=== PATIENT | female | born 1970 | race Caucasian/White ===

== ENCOUNTER → 2021-06-18 14:07 | Outpatient (CLI) | payer OTHER, SELFPAY ==
--- NOTE | ~2021-06-18 | US_ITS ---
EXAMINATION: US thyroid EXAM DATE: 06/18/2021 14:34 INDICATION: Nontoxic goiter. TECHNIQUE: Multiple grayscale and Doppler images of the thyroid were obtained (by a technologist who performed the scan) and subsequently reviewed. Individual nodules and recommendations may be reporte d in accordance with TI-RADS system as designated by the 2017 ACR White Paper TI-RADS committee. The re is no prior study for comparison. FINDINGS: Right thyroid lobe measures 5.5 x 1.7 x 2.1 cm, the left measuring 5.3 x 1.7 x 2.2 cm, moderately enl arged. Diffusely heterogeneous thyroid parenchyma. Largest thyroid nodule is in the inferior pole of the right thyroid lobe measuring 2.4 x 2.0 x 1.8, s olid (2 points), hyperechoic (1 point), wider than tall, smooth well defined margin, without echogeni c foci, category TR3 for this nodule. This category nodule is recommended for biopsy if reaches 2.5 cm in size. Recommend one-year follow-up. The other nodules are subcentimeter in size. IMPRESSION: Multinodular goiter; recommend one-year follow-up. Reviewed, dictated and finalized at location B.
== END ==
PROVIDERS: PCP Family Medicine; Visit Provider Internal Medicine Endocrinology, Diabetes & Metabolism
DX: E04.2 Nontoxic multinodular goiter (principal)
CPT/HCPCS: 76536

== ENCOUNTER → 2022-01-06 15:16 | Outpatient (CLI) | payer OTHER, SELFPAY ==
--- NOTE | ~2022-01-06 | US_ITS ---
EXAMINATION: US thyroid DATE: 01/06/2022 15:38 INDICATION: Nontoxic single thyroid nodule. TECHNIQUE: Multiple ultrasound images of the thyroid were obtained. COMPARISON: Ultrasound 06/18/2021 FINDINGS: The right thyroid lobe measures 5.7 x 1.9 x 1.9 cm. The left thyroid lobe measures 4.9 x 2.0 x 1.5 c m. The thyroid is diffusely hypoechoic with heterogeneous echogenicity. Vascularity is normal. In th e right thyroid lobe, there is a 2.2 cm solid, hyperechoic, wider than tall nodule smooth margin with out echogenic foci (TI-RADS TR3). IMPRESSION: 1. Heterogeneous thyroid, likely chronic lymphocytic (Patricia) thyroiditis. 2. Right thyroid nodule, stable from 06/18/2021. Thyroid ultrasound is recommended in 1-2 years. Reviewed, dictated and finalized at location B. IMPRESSION: 1. Heterogeneous thyroid, likely chronic lymphocytic (Patricia) thyroiditis. 2. Right thyroid nodule, stable from 06/18/2021. Thyroid ultrasound is recommend ed in 1-2 years.
== END ==
PROVIDERS: PCP Family Medicine; Visit Provider Nurse Practitioner
DX: E04.1 Nontoxic single thyroid nodule (principal)
CPT/HCPCS: 76536

== ENCOUNTER → 2022-07-24 09:52 | Outpatient (CLI) | payer OTHER, SELFPAY ==
--- NOTE | ~2022-07-24 | XR_ITS ---
EXAMINATION: XR ankle LT 2V, XR foot LT 2V, XR foot RT 2V, XR ankle RT 2V DATE: 07/24/2022 10:57 INDICATION: Multiple joint pain TECHNIQUE: 1. Anteroposterior and lateral view of the left ankle were obtained. 2. Dorsoplantar and lateral views of the left foot were obtained. 3. Anteroposterior and lateral view of the right ankle were obtained. 4. Dorsoplantar and lateral views of the right foot were obtained. COMPARISON: None. FINDINGS: Normal alignment at the bilateral feet and ankles. No fractures. Minimal to mild polyarticular osteoa rthritis at multiple joints in the bilateral mid and forefeet most prominent at the central tarsal me tatarsal joints and a few of the interphalangeal joints. No erosions to suggest inflammatory arthriti s. Moderate-sized left and small right plantar calcaneal spurs. No ankle joint effusion. The soft tis sues are unremarkable. IMPRESSION: 1. Minimal to mild polyarticular osteoarthritis in the bilateral mid and forefeet. No findings to sug gest an inflammatory arthritis. Reviewed, dictated and finalized at location L. IMPRESSION: 1. Minimal to mild polyarticular osteoarthritis in the bilateral mid and forefe et. No findings to suggest an inflammatory arthritis. IMPRESSION: 1. Minimal to mild polyarticular osteoarthritis in the bilateral mid and forefe et. No findings to suggest an inflammatory arthritis. IMPRESSION: 1. Minimal to mild polyarticular osteoarthritis in the bilateral mid and forefe et. No findings to suggest an inflammatory arthritis.
--- NOTE | ~2022-07-24 | XR_ITS ---
EXAMINATION: XR sacroiliac joints min 3V DATE: 07/24/2022 10:58 INDICATION: Multiple joint pain TECHNIQUE: AP and left and right oblique views of the bilateral sacral iliac joints were obtained. COMPARISON: None. FINDINGS: Bone alignment is normal. No fracture or suspected avascular necrosis. Mild osteoarthritis at the stanislaw ateral sacral iliac joints. No erosions to suggest inflammatory sacroiliitis. There is additional lik mauro moderate severity osteoarthritis at the bilateral lower lumbar facet joints. Bilateral hip joint spaces appear relatively preserved. IMPRESSION: 1. 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 Reviewed, dictated and finalized at location L. IMPRESSION: 1. 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
--- NOTE | ~2022-07-24 | XR_ITS ---
EXAMINATION: XR wrist RT 2V, XR hand LT 2V, XR hand RT 2V, XR wrist LT 2V DATE: 07/24/2022 10:57 INDICATION: Multiple joint pain TECHNIQUE: 1. Posteroanterior and lateral views of the left wrist were obtained. 2. Dorsal palmar and lateral views of the left hand were obtained. 3. Posteroanterior and lateral views of the right wrist were obtained. 4. Dorsal palmar and lateral views of the right hand were obtained. COMPARISON: None. FINDINGS: Normal alignment at the bilateral hands and wrists. No fracture identified. Mild osteoarthritis at t he right first interphalangeal joint and mild to moderate osteoarthritis at the left first interphala ngeal joint. Remaining joint spaces at the bilateral hands. No erosions to suggest inflammatory arthr itis. No focal soft tissue swelling. IMPRESSION: 1. Osteoarthritis at the bilateral first interphalangeal joints, mild on the left and mild to moderat e on the right. Reviewed, dictated and finalized at location L. IMPRESSION: 1. Osteoarthritis at the bilateral first interphalangeal joints, mild on the le ft and mild to moderate on the right. IMPRESSION: 1. Osteoarthritis at the bilateral first interphalangeal joints, mild on the le ft and mild to moderate on the right. IMPRESSION: 1. Osteoarthritis at the bilateral first interphalangeal joints, mild on the le ft and mild to moderate on the right.
== END ==
PROVIDERS: PCP Family Medicine; Visit Provider Nurse Practitioner
DX: M15.9 Polyosteoarthritis, unspecified (principal); M25.50 Pain in unspecified joint; R53.81 Other malaise; M79.10 Myalgia, unspecified site
CPT/HCPCS: 72202; 73100; 73120; 73600; 73620